=== PATIENT | female | born 1945 | race African-American/Black ===

== ENCOUNTER 2016-08-19 11:46 | Emergency (ER) | payer MEDICARE, BC ==
--- NOTE | ~2016-08-19 | CR156 ---
[facility] A Service of [facility] RADIOLOGY TEXT RESULTS PATIENT: ANIBAL ALVAREZ LOCATION: [facility] : 44 UNIT #: [id number] AGE: [address]: Brittani Coronado SEX: F ORDER DR: [id number] [facility] [address] [place], [place] [address] [id number] E MR#: [id number] Acc #: [id number] NAME: ANIBAL ALVAREZ : 1945 SEX: F STUDY DATE/TIME: 08/19/2016 10:36 UNIT: [facility] ROOM: STUDY DESCRIPTION: CR Humerus Min 2 View Lt Attending Physician: Brittani Coronado P.A.-C. Ordering Physician: Brittani Coronado P.A.-C. Primary Care Physician: Angel Kelly M.D. MEDICAL IMAGING REPORT This report is preliminary unless electronic signature is present EXAM Left humerus 2 views INDICATIONS 71-year-old female with left arm pain after falling last night. No comparisons. FINDINGS There is no definite acute fracture. There are degenerative changes of the shoulder IMPRESSION No definite acute fracture Dictated by... Marshall Cole M.D. THIS IS AN ELECTRONICALLY VERIFIED REPORT Marshall Cole M.D. at 08/20/2016 10:43 AM KATHIE/natan TD: 08/20/2016 05:38 JOB #: [id number] MEDICAL IMAGING REPORT COPY
--- NOTE | ~2016-08-19 | CR181 ---
[facility] A Service of [facility] RADIOLOGY TEXT RESULTS PATIENT: ANIBAL ALVAREZ LOCATION: [facility] : 44 UNIT #: [id number] AGE: [address]: Brittani Coronado SEX: F ORDER DR: [id number] [facility] [address] [place], [place] [address] [id number] E MR#: [id number] Acc #: [id number] NAME: ANIBAL ALVAREZ : 1945 SEX: F STUDY DATE/TIME: 08/19/2016 10:44 UNIT: [facility] ROOM: STUDY DESCRIPTION: CR Lumbar Spine 2 or 3 Views Attending Physician: Brittani Coronado P.A.-C. Ordering Physician: Brittani Coronado P.A.-C. Primary Care Physician: Angel Kelly M.D. MEDICAL IMAGING REPORT This report is preliminary unless electronic signature is present EXAM Lumbar spine 3 views INDICATIONS 71-year-old female low back pain after falling last night. COMPARISON 03/17/2014 FINDINGS The study is extremely limited as the lateral views are underpenetrated. Osseous detail is obscured. The alignment appears normal and there has been interval postoperative change at L5-S1. IMPRESSION Extremely limited study due to underpenetration on the lateral view. The osseous detail is obscured due to underpenetration. No clearly acute abnormality is seen although the study is extremely limited. Dictated by... Marshall Cole M.D. THIS IS AN ELECTRONICALLY VERIFIED REPORT Marshall Cole M.D. at 08/20/2016 10:43 AM KATHIE/natan TD: 08/20/2016 05:42 JOB #: [id number] MEDICAL IMAGING REPORT COPY
--- NOTE | ~2016-08-19 | CT98 ---
[facility] A Service of [facility] RADIOLOGY TEXT RESULTS PATIENT: ANIBAL ALVAREZ LOCATION: [facility] : 44 UNIT #: [id number] AGE: [address]: Brittani Coronado SEX: F ORDER DR: [id number] [facility] [address] [place], [place] [address] [id number] E MR#: [id number] Acc #: [id number] NAME: ANIBAL ALVAREZ : 1945 SEX: F STUDY DATE/TIME: 08/19/2016 11:22 UNIT: [facility] ROOM: STUDY DESCRIPTION: CT Lumbar Spine Wo Cont Attending Physician: Brittani Coronado P.A.-C. Ordering Physician: Brittani Coronado P.A.-C. Primary Care Physician: Angel Kelly M.D. MEDICAL IMAGING REPORT This report is preliminary unless electronic signature is present EXAM Lumbar spine CT scan without contrast. HISTORY Fell down steps yesterday with low back pain. Previous back surgery. This CT exam was performed with one or more of the following radiation dose reduction techniques: automatic exposure control, adjustment of mA and/or kV according to patient size, and iterative reconstruction. FINDINGS Axial 2 mm images were obtained through the lumbar spine and sagittal and coronal reconstructions were generated. There is marked sclerosis in the T11-T12 vertebral bodies with markedly narrowed disc space. L1, L2, L3, L4 are normal. There are postoperative changes of L5-S1 with disc insert and metal device anteriorly located at that level. There is no fracture or subluxation. IMPRESSION 1. There is no evidence of acute injury. 2. There is marked disc space narrowing at T11-12 with adjacent sclerosis. The superior and inferior endplates of the vertebral bodies are normal so this does not appear to suggest discitis. There is posterior osteophyte formation at that level. 3. Postoperative changes L5-S1. 4. Otherwise normal. Dictated by... Hemanth Parra M.D. THIS IS AN ELECTRONICALLY VERIFIED REPORT Hemanth Parra M.D. at 08/20/2016 3:07 PM [facility] A Service of [facility] RADIOLOGY TEXT RESULTS PATIENT: WELSH,ANIBAL [id number] UNIT #: [id number] AGE: [address]: Brittani Coronado SEX: F ORDER DR: Mario TD: 08/20/2016 06:01 JOB #: [id number] MEDICAL IMAGING REPORT COPY
--- NOTE | ~2016-08-19 | CR243 ---
[facility] A Service of [facility] RADIOLOGY TEXT RESULTS PATIENT: ANIBAL ALVAREZ LOCATION: [facility] : 44 UNIT #: [id number] AGE: [address]: Brittani Coronado SEX: F ORDER DR: [id number] [facility] [address] [place], [place] [address] [id number] E MR#: [id number] Acc #: [id number] NAME: ANIBAL ALVAREZ : 1945 SEX: F STUDY DATE/TIME: 08/19/2016 10:39 UNIT: [facility] ROOM: STUDY DESCRIPTION: CR Thoracic Spine 3 Views Attending Physician: Brittani Coronado P.A.-C. Ordering Physician: Brittani Coronado P.A.-C. Primary Care Physician: Angel Kelly M.D. MEDICAL IMAGING REPORT This report is preliminary unless electronic signature is present EXAM Thoracic spine 3 views INDICATIONS 71-year-old female with back pain after falling last night. No comparisons. FINDINGS Vertebral body heights are maintained. Multilevel degenerative disc space narrowing. Normal alignment. IMPRESSION Degenerative change as described. No acute finding Dictated by... Marshall Cole M.D. THIS IS AN ELECTRONICALLY VERIFIED REPORT Marshall Cole M.D. at 08/20/2016 10:43 AM KATHIE/natan TD: 08/20/2016 05:46 JOB #: [id number] MEDICAL IMAGING REPORT COPY
--- NOTE | ~2016-08-19 | CR229 ---
[facility] A Service of [facility] RADIOLOGY TEXT RESULTS PATIENT: ANIBAL ALVAREZ LOCATION: [facility] : 43 UNIT #: [id number] AGE: [address]: Brittani Coronado SEX: F ORDER DR: [id number] [facility] [address] [place], [place] [address] [id number] E MR#: [id number] Acc #: [id number] NAME: ANIBAL ALVAREZ : 1945 SEX: F STUDY DATE/TIME: 08/19/2016 10:34 UNIT: [facility] ROOM: STUDY DESCRIPTION: CR Shoulder Min 2 View Lt Attending Physician: Brittani Coronado P.A.-C. Ordering Physician: Brittani Coronado P.A.-C. Primary Care Physician: Angel Kelly M.D. MEDICAL IMAGING REPORT This report is preliminary unless electronic signature is present EXAM Left shoulder 2 views INDICATIONS 71-year female with history of left shoulder pain after falling last night. No comparisons. FINDINGS There is degenerative change of the glenohumeral joint but no evidence of fracture or dislocation. IMPRESSION No acute finding Dictated by... Marshall Cole M.D. THIS IS AN ELECTRONICALLY VERIFIED REPORT Marshall Cole M.D. at 08/20/2016 10:43 AM KATHIE/natan TD: 08/20/2016 05:44 JOB #: [id number] MEDICAL IMAGING REPORT COPY
--- NOTE | ~2016-08-19 | CR21 ---
[facility] A Service of [facility] RADIOLOGY TEXT RESULTS PATIENT: ANIBAL ALVAREZ LOCATION: [facility] : 44 UNIT #: [id number] AGE: [address]: Brittani Coronado SEX: F ORDER DR: [id number] [facility] [address] [place], [place] [address] [id number] E MR#: [id number] Acc #: [id number] NAME: ANIBAL ALVAREZ : 1945 SEX: F STUDY DATE/TIME: 08/19/2016 10:32 UNIT: [facility] ROOM: STUDY DESCRIPTION: CR Ankle Min 3 Views Rt Attending Physician: Brittani Coronado P.A.-C. Ordering Physician: Brittani Coronado P.A.-C. Primary Care Physician: Angel Kelly M.D. MEDICAL IMAGING REPORT This report is preliminary unless electronic signature is present EXAM 3 views of the right ankle INDICATIONS 71-year-old female with right ankle pain after falling last night. COMPARISON None. FINDINGS There is calcaneal spurring. No acute fracture. Soft tissue structures are unremarkable. No dislocation. IMPRESSION Calcaneal spurring, otherwise unremarkable. Dictated by... Marshall Cole M.D. THIS IS AN ELECTRONICALLY VERIFIED REPORT Marshall Cole M.D. at 08/20/2016 10:43 AM KATHIE/anila TD: 08/20/2016 05:42 JOB #: [id number] MEDICAL IMAGING REPORT COPY
== END 2016-08-19 12:43 | disposition home or self-care (01) ==
LOC: CED 11:46
DX: S33.5XXA Sprain of ligaments of lumbar spine, initial encounter (principal); S46.912A Strain of unspecified muscle, fascia and tendon at shoulder and upper arm level, left arm, initial encounter; I10 Essential (primary) hypertension; W01.0XXA Fall on same level from slipping, tripping and stumbling without subsequent striking against object, initial encounter; Y92.009 Unspecified place in unspecified non-institutional (private) residence as the place of occurrence of the external cause
CPT/HCPCS: 72072; 72100; 72131; 73030; 73060; 73610; 99284